=== PATIENT | male | born 1985 | race Caucasian/White ===

== ENCOUNTER 2025-06-06 10:05 | Outpatient (REF) | payer MEDICAID, SELFPAY ==
--- OUTSIDE RECORDS SUMMARY | 2025-06-05 14:45 | XMS_ITS | Encounter Summary ---
Author Organization [email or web address] Address [address] [place] [address] [address] [place] [address] Care Team Providers Care Tactical Air Defense Controller Name Role Phone Annita Delcid CNP Primary Care Provider [phone] Reason for Referral * Consultation (Routine) - Pending Review Specialty Diagnoses / Procedures Referred By Pema nix Referred To Contact Orthopaedic Surgery Diagnoses Closed fracture of left foot, sequela Annita Delcid CNP [address] [place] [address] Phone: tel: fax: Referral ID Status Reason Start Date Expiration Date Visits Requested Visits Authorized [id number] Pending Review Specialty Services Required 06/05/2026 1 1 Encounter Details Date Type Department Care Team (Latest Contact Info) Description 06/05/2025 2:45 PM EDT Office Visit [facility] P[facility]S [address] [place] [address] Annita Delcid CNP [address] [place] [address] Closed fracture of left foot, sequela (Primary Dx); Encounter for physical examination; Encounter for immunization; Elevated BP without diagnosis of hypertension; Allergic conjunctivitis of both eyes Social History Tobacco Use Types Packs/Day Years Used Date Smoking Tobacco: Never Passive Smoke Exposure: Never Smokeless Tobacco: Never Tobacco Cessation:Counseling Given: Not Answered Depression Answer Date Recorded Patient Health Questionnaire-9 Score 6 06/05/2025 Patient Health Questionnaire-9 Score 6 06/05/2025 Last PHQ-9: Questionnaire Data Not on file 1 Housing Stability Answer Date Recorded What is your housing situation today? I have efrain lazo 06/05/[address] you li ve. Do you have problems with any of the following? None of the above 06/05/2025 Food Insecurity Answer Date Recorded Within the past 12 months, y ou worried that your food would run out before you got money to buy more: Never True 06/05/2025 Within the past 12 months,th e food you bought just didn't last and you didn't have enough money to get more: Never True Transportation Answer Date Recorded In the past 12 months, has l ack of transportation kept you from medical appts, meetings, work or from getting things needed for daily living? No 06/05/2025 Utilities Answer Date Recorded In the past 12 months, has t he electric, gas, oil or water company threatened to shut off services in your home? No 06/05/2025 Depression Answer Date Recorded Patient Health Questionnaire-2 Score 3 06/05/2025 Internet Access Answer Date Recorded Internet Access Q1 Yes 06/05/2025 Internet Access Q2 Not on file 06/05/2025 Sex and Gender Information Value Date Recorded Sex Assigned at Male 06/20/2022 10:31 AM EDT Legal Sex Male 10:31 AM EDT Gender Identity Male 06/20/2022 10:31 AM EDT Sexual Orientation Don't know 06/20/2022 10 :31 AM EDT documented as of this encounter Last Filed Vital Signs Vital Sign Reading Time Taken Comments Blood Pressure 142/92 06/05/2025 2:32 PM EDT Pulse 82 06/05/2025 2:32 PM EDT Temperature 36.2 C (97.1 F) 06/05/2025 2:32 PM EDT Respiratory Rate 14 06/05/2025 2:32 PM EDT Oxygen Saturation 98% 06/05/2025 2:32 PM EDT Inhaled Oxygen Concentration - - Weight 89.8 kg (198 lb) 06/05/2025 2:32 PM EDT Height 159.4 cm (5' 2.75 ) 06/05/2025 2:32 PM ED T Body Mass Index 35.35 06/05/2025 2:32 PM EDT documented in this encounter Functional Status * Over the past 2 weeks, how often have you been bothered by any of the following problems? Question Answer Date of Assessment Author Patient Health Questionnaire -2 Score 3 06/05/2025 2:36 PM EDT Gricelda Tineo MA * Little interest or pleasure in doing things Answer Date of Assessment Author Nearly every day 06/05/2025 2:36 PM EDT Mikaela-Norma Muhammad MA * Feeling down, depressed, or hopeless Answer Date of Assessment Author Not at all 06/05/2025 2:36 PM EDT Mikaela-Co Norma wagoner MA * Trouble falling or staying asleep, or sleeping too much Answer Date of Assessment Author Not at all 06/05/2025 2:36 PM EDT Mikaela-Co Norma wagoner MA * Feeling tired or having little energy Answer Date of Assessment Author Nearly every day 06/05/2025 2:36 PM EDT Mikaela-Norma Muhammad MA * Poor appetite or overeating Answer Date of Assessment Author Not at all 06/05/2025 2:36 PM EDT Mikaela-Co Norma wagoner MA * Feeling bad about yourself - or that you are a failure or have let yourself or your family down Answer Date of Assessment Author Not at all 06/05/2025 2:36 PM EDT Mikaela-Co Norma wagoner MA * Trouble concentrating on things, such as reading the newspaper or watching television Answer Date of Assessment Author Not at all 06/05/2025 2:36 PM EDT Mikaela-Co Norma wagoner MA * Moving or speaking so slowly that other people could have noticed? Or the opposite - being so fidgety or restless that you have been moving around a lot more than usual. Answer Date of Assessment Author Not at all 06/05/2025 2:36 PM EDT Mikaela-Co Norma wagoner MA * Thoughts that you would be better off or hurting yourself in some way Answer Date of Assessment Author Not at all 06/05/2025 2:36 PM EDT Mikaela-Co Norma wagoner MA * Patient Health Questionnaire-9 Score Answer Date of Assessment Author 6 06/05/2025 2:36 PM EDT AlNorma Banda MA * How difficult have these problems made it for you to do your work, take care of things at home, or get along with other people? Answer Date of Assessment Author Not difficult at all 06/05/2025 2:36 PM EDT Norma Soler MA * Over the last 2 weeks, how often have you been bothered by any of the following problems? Question Answer Date of Assessment Author Feeling nervous, anxious, or on edge 0 06/05/2025 2:35 PM EDT Gricelda Tineo MA Not being able to stop or control worrying 0 06/05/2025 2:35 PM EDT Gricelda Tineo MA Worrying too much about different things 0 06/05/2025 2:35 PM EDT Gricelda Tineo MA Trouble relaxing 0 06/05/2025 2:35 PM EDT Norma Almanza MA Being so restless that it is hard to sit still 0 06/05/2025 2:35 PM EDT Gricelda Tineo MA Becoming easily annoyed or irritable 0 06/05/2025 2:35 PM EDT Gricelda Tineo MA Feeling afraid as if somethi ng awful might happen 0 06/05/2025 2:35 PM EDT Gricelda Tineo MA CINDY-7 Total Score 0 06/05/2025 2:35 PM EDT Norma Tineo MA documented as of this encounter Progress Notes * Annita Delcid CNP - 06/05/2025 2:45 PM EDT Subjective: Andre Paul is a 40 y.o. male who presents to the office for a new patient visit. Previous PCP unknown. Interim history: Pt was seen at [facility] ED after a fall for a foot injury and was diagnosed with L tarsal/metatarsal fractures. Pt had lisfranc injury repair. Has post op appointment with [facility] scheduled for 06/20. Imaging CT L Foot IMPRESSION: Fractures involving the medial medial and lateral cuneiform bones. Also visualizes of fractures involving the proximal second third and fourth metatarsals almost a Lisfranc fracture but without any dislocation. . A comminuted fracture involving the proximal fourth metacarpal with an large plantar displaced fragment is seen. There is moderate dorsal proximal midfoot soft tissue swelling. Current concerns: Needs to establish care to obtain referral for [facility]. Reports his foot feels much better but he is still unable to bear weight on that foot, also reports some mild pain and swelling on posterior aspect of foot. Pt reporting red itchy eyes in both eyes. Denies any crusting, or purulent discharge in eyes. Reports he notices certain environmental triggers such as perfume. Problem List[1] Surgical History[2] Family History[3] Social History Living situation: lives with sister Employment/Education:not working currently Diet/exercise: none Sexual activity: none reported Mental health: Patient Health Questionnaire-9 Score: 6 (06/05/2025 2:36 PM) Patient Health Questionnaire-2 Score: 3 (06/05/2025 2:36 PM) Thoughts that you would be better off or hurting yourself in some way: Not at all (06/05/2025 2:36 PM) Allergies[4] Review of Systems Vitals: 06/05/25 1432 BP: (!) 142/92 BP Location: Left arm Patient Position: Sitting BP Cuff Size: Large adult Pulse: 82 Resp: 14 Temp: 97.1 ??F (36.2 ??C) TempSrc: Oral SpO2: 98% Weight: 198 lb (89.8 kg) Height: 5' 2.75 (1.594 m) Physical Exam Vitals reviewed. Constitutional: General: He is not in acute distress. Appearance: Normal appearance. He is not ill-appearing, toxic-appearing or diaphoretic. HENT: Head: Normocephalic and atraumatic. Cardiovascular: Rate and Rhythm: Normal rate and regular rhythm. Pulses: Normal pulses. Dorsalis pedis pulses are 2+ on the right side and 2+ on the left side. Posterior tibial pulses are 2+ on the right side and 2+ on the left side. Heart sounds: Normal heart sounds. No murmur heard. No friction rub. No gallop. Pulmonary: Effort: Pulmonary effort is normal. No respiratory distress. Breath sounds: Normal breath sounds. No stridor. No wheezing, rhonchi or rales. Chest: Chest wall: No tenderness. Musculoskeletal: Right lower leg: No edema. Left lower leg: No edema. Feet: Right foot: Skin integrity: Skin integrity normal. Toenail Condition: Right toenails are normal. Left foot: Skin integrity: Skin integrity normal. Toenail Condition: Left toenails are normal. Comments: +incision is clean dry and intact, no redness, swelling, or signs of infection. Mild ecchymoses in arch of foot that appear to be resolving. Neurological: General: No focal deficit present. Mental Status: He is alert and oriented to person, place, and time. Mental status is at baseline. Psychiatric: Mood and Affect: Mood normal. Behavior: Behavior normal. Thought Content: Thought content normal. Judgment: Judgment normal. Assessment & Plan Closed fracture of left foot, sequela Foot appears to be healing routinely, no s/symptoms of infection, no open wound, incision site is clean dry and intact, DP/PT pulses intact bilaterally. Pt will f/u with [facility] post operatively. I refilled tylenol for pain relief, will send ibuprofen based on lab results Orders: Referral to Orthopaedic Surgery; Future Acetaminophen Extra Strength 500 MG tablet; Take 2 tablets (1,000 mg) by mouth if needed in the morning, at noon, and at bedtime (mild to moderatee pain). Encounter for physical examination 1. Anticipatory guidance discussed. Specific topics reviewed: drugs, ETOH, and tobacco, importance of regular dental care, importance of regular exercise, importance of varied diet, minimize junk food, and sex; STD and prevention as appropriate. 2. Age appropriate screenings discussed 3. Pt agreed to Tdap and flu vaccines today Routine Screening and Health Maintenance Optometry: No appointment requested Dental: Yes, last appointment 2 months ago ASCVD risk: 40 y.o. male family history of premature CAD obese sedentary lifestyle Lab Review: orders written for new lab studies as appropriate; see orders Routine Cancer Screening Colon CA: not yet indicated based on age Lung CA: PSA: not yet indicated based on age Orders: Lipid Panel, Standard; Future CBC auto differential; Future HIV-1/2 Antigen and Antibodies, Fourth Generation, with Reflexes; Future Hepatitis C Antibody with Reflex to HCV, RNA, Quantitative, Real-Time PCR; Future Basic Metabolic Panel; Future Encounter for immunization Orders: FLU VACCINE TRIVALENT [id number] (Fluarix) 19 yrs + TDAP VACCINE 7 yrs + Elevated BP without diagnosis of hypertension BP mildly elevated above goal >140/90, pt is in pain 2/2 to foot fracture. Advised weight loss Low sodium diet Increased hydration Allergic conjunctivitis of both eyes Orders: olopatadine (Patanol) 0.1 % ophthalmic solution; Administer 1 drop into affected eye(s) 2 times daily. Current Medications[5] Immunization History Administered Date(s) Administered Influenza, seasonal, injectable, preservative free 06/05/2025 Tdap 06/05/2025 Follow up in about 3 months (around 09/05/2025) for f/u foot fracture . [1] Patient Active Problem List Diagnosis Development delay Illiterate [2] Past Surgical History: Procedure Laterality Date APPENDECTOMY 10 years ago [3] Family History Problem Relation Name Age of Onset Other (HTN) Mother Other (HTN) Father [4] No Known Allergies [5] Current Outpatient Medications Medication Sig Dispense Refill aspirin 325 MG EC tablet Take 1 tablet by mouth Once per day. Acetaminophen Extra Strength 500 MG tablet Take 2 tablets (1,000 mg) by mouth if needed in the morning, at noon, and at bedtime (mild to moderatee pain). 60 tablet 0 ibuprofen 800 MG tablet Take 800 mg by mouth 4 times daily. No current facility-administered medications for this visit. documented in this encounter Miscellaneous Notes * Addendum Note - Annita Delcid CNP - 06/05/2025 2:45 PM EDTAddended by: ANNITA DELCID on: 06/05/2025 04:04 PM Modules accepted: Orders documented in this encounter Plan of Treatment Scheduled Orders Name Type Priority Associated Diagnoses Orde r Schedule Lipid Panel, Standard Lab Routine Encounter for physical examination Expected: 06/05/2025 (Approximate), Expires: 06/05/2026 CBC auto differential Lab Routine Encounter for physical examination Expected: 06/05/2025 (Approximate), Expires: 06/05/2026 HIV-1/2 Antigen and Antibodies, Fourth Generation, with Reflexes Lab Routine Encounter for physical examination Expected: 06/05/2025 (Approximate), Expires: 06/05/2026 Hepatitis C Antibody with Reflex to HCV, RNA, Quantitative, Real-Time PCR Lab Routine Encounter for physical examination Expected: 06/05/2025, Expires: 06/05/2026 Basic Metabolic Panel Lab Routine Encounter for physical examination Expected: 06/05/2025 (Approximate), Expires: 06/05/2026 Scheduled Referrals Name Type Priority Associated Diagnoses Order Schedule Referral to Orthopaedic Surgery Outpatient Referral Routine Closed fracture of left foot, sequela Expected: 06/05/2025 (Approximate), Expires: 06/05/2026 documented as of this encounter Visit Diagnoses Diagnosis Closed fracture of left foot, sequela- Primary Encounter for physical examination Encounter for immunization Elevated BP without diagnosis of hypertension Allergic conjunctivitis of both eyes Other chronic allergic conjunctivitis documented in this encounter Additional Health Concerns Assessment Noted Time PHQ-9 Depression Total Score: 6 06/05/20 25 2:36 PM EDT documented as of this encounter Care Teams Tactical Air Defense Controller Relationship Specialty Start Date End Date Annita Delcid CNP [address] [place] [id number] PCP - General Family Medicine 06/05/25 documented as of this encounter
--- OUTSIDE RECORDS SUMMARY | 2025-06-06 11:57 | XMS_ITS | Clinical Summary ---
Author Organization [employer] Address [address] [facility] [address] [place] [address] Care Team Providers Care Ignition Mechanic Name Role Phone Zaina Delcid CNP Primary Care Provider [phone] Allergies No known active allergies Medications aspirin 325 MG EC tablet Take 1 tablet by mouth Once per day. Active Acetaminophen Extra Strength 500 MG tabletIndications :Closed fracture of left foot, sequela Take 2 tablets (1,000 mg) by mouth if needed in the morning, at noon, and at bedtime (mild to moderatee pain). 60 tablet Active ibuprofen 800 MG tablet Take 800 mg by mouth 4 times daily. Active olopatadine (Patanol) 0.1 % ophthalmic solutionIndicatio ns:Allergic conjunctivitis of both eyes Administer 1 drop into affected eye(s) 2 times daily. 5 mL 2 025 2025 Active Acetaminophen Extra Strength 500 MG tablet TAKE 2 TABLETS BY MOUTH EVERY 8 HOURS,X15 DAYS 024 2024 Discontinued(R eorder (will not trigger notification to Pharmacy)) Active Problems Problem Noted Date Diagnosed Date Development delay 11/08/2016 Illiterate 11/08/2016 Encounters Date Type Department Care Team Description 06/05/2025 2:45 PM EDT Office Visit [facility] MED & PEDS [address] [place] [address] Zaina Delcid CNP Closed fracture of left foot, sequela (Primary Dx); Encounter for physical examination; Encounter for immunization; Elevated BP without diagnosis of hypertension; Allergic conjunctivitis of both eyes 06/05/2025 Telephone [facility] MED & PEDS [address] [place] [address] Mikaela-DericSisters, [place] chart prep 06/05/2025 Travel 06/05/2025 Telephone [facility] MEDICINE [address] [place] [address] Naresh Sanderson MD [facility] - New Patient Assistance from Last 3 Months Immunizations Immunization Administration Dates Next Due Influenza, seasonal, injectable, preservative fr ee 06/05/2025 Tdap 06/05/2025 Family History Medical History Relation Name Comments HTN Father HTN Mother Relation Name Status Comments Father Mother Social History Tobacco Use Types Packs/Day Years [...] Don't know 06/20/2022 10 :31 AM EDT Last Filed Vital Signs Vital Sign Reading [...] Mass Index 35.35 06/05/2025 2:32 PM EDT Plan of Treatment Health Maintenance Due Date Last Done Comments HIV Screening 1987 Lipid Panel 1987 Family Planning (PISQ) 2002 HPV Vaccines (1 - Male 3-dos e series) 2002 Hepatitis C Screening 2005 Hepatitis B Vaccines (1 of 3 - 19+ 3-dose series) 2006 COVID-19 Vaccine (1 - 2023-2 5 season) 2025 Alcohol/Substance Use Screening 06/05/2026 06/05/2025 Depression Screening 06/05/2026 06/05/2025, 06/05/2025 Disability Screening 06/05/2026 06/05/2025 SDOH Screening 06/05/2026 06/05/2025 Tobacco Screening 06/05/2026 06/05/2025 DTaP/Tdap/Td Vaccines (2 - T d or Tdap) 06/05/2035 06/05/2025 Zoster Vaccines (1 of 2) 2037 RSV Patients and Patients Aged 60 years or older (1 - 1-dose 75+ series) 2062 Influenza Vaccine Completed 06/05/2025 HIB Vaccines Aged Out No longer eligi ble based on patient's age to complete this topic Hepatitis A Vaccines Aged Out No long er eligible based on patient's age to complete this topic IPV Vaccines Aged Out No longer eligi ble based on patient's age to complete this topic Meningococcal B Vaccine Aged Out No l onger eligible based on patient's age to complete this topic Meningococcal Vaccine Aged Out No rizwana kaycee eligible based on patient's age to complete this topic Pneumococcal Vaccine: Pediatrics (0 to 5 Years) and At-Risk Patients (6 to 49) Years Aged Out No longer eligible b ased on patient's age to complete this topic RSV under 20 months Aged Out No longe r eligible based on patient's age to complete this topic Rotavirus Vaccines Aged Out No longer eligible based on patient's age to complete this topic Insurance C3 Care Teams Ignition Mechanic Relationship Specialty Start Date End Date Zaina Delcid CNP [address] [place] [address] PCP - General Family Medicine 06/05/25
--- OUTSIDE RECORDS SUMMARY | 2025-06-06 11:57 | XMS_ITS | Encounter Summary ---
Author Organization [employer] Address [address] [facility] [address] [place] [address] Care Team Providers Care Supervisor Assembly Stock Name Role Phone Zaina Delcid TESTING PROJECTS ADMINISTRATOR Primary Care Provider [phone] Encounter Details Date Type Department Care Team (Latest Contact Info) Description 06/05/2025 Travel Social History Tobacco Use Types Packs/Day Years Used Date Smoking Tobacco: Never Passive Smoke Exposure: Never Smokeless Tobacco: Never Depression Answer Date Recorded Patient Health Questionnaire-9 [...] AM EDT documented as of this encounter Functional Status * Over the [...] Not at all 06/05/2025 2:36 PM EDT Mikaela-Norma Kim MA * Trouble falling or staying asleep, or sleeping too much Answer Date of Assessment Author Not at all 06/05/2025 2:36 PM EDT Al-Co Norma wagoner MA * Feeling tired or [...] Not at all 06/05/2025 2:36 PM EDT Al-Co Norma wagoner MA * Trouble concentrating on things, such as reading the newspaper or watching television Answer Date of Assessment Author Not at all 06/05/2025 2:36 PM EDT Mikaela-Norma Kim MA * Moving or speaking so slowly [...] Not at all 06/05/2025 2:36 PM EDT Norma Reyna MA * Patient Health Questionnaire-9 Score Answer Date of Assessment Author 6 06/05/2025 2:36 PM EDT ChanaCo Norma wagoner MA * How difficult have these problems [...] Tineo MA documented as of this encounter Plan of Treatment Not on file documented as of this encounter Visit Diagnoses Not on filedocumented in this encounter Additional Health Concerns Assessment Noted Time PHQ-9 Depression Total Score: 6 06/05/20 25 2:36 PM EDT documented as of this encounter Care Teams Supervisor Assembly Stock Relationship Specialty Start Date End Date Zaina Delcid CNP [address] [place] [id number] PCP - General Family Medicine 06/05/25 documented as of this encounter
--- OUTSIDE RECORDS SUMMARY | 2025-06-06 11:57 | XMS_ITS | Encounter Summary ---
Author Organization [employer] Address [address] [facility] [address] [place] [address] Care Team Providers Care Water Project Manager Name Role Phone Zaina Delcid KOBI Primary Care Provider [phone] Reason for Visit * Reason Onset Date Comments chart prep 06/05/2025 Encounter Details Date Type Department Care Team (Late st Contact Info) Description 06/05/2025 Telephone [facility] MED & PEDS [address] [place] [address] RivkaRaymond, [place] chart prep Social History Tobacco Use Types Packs/Day Years [...] AM EDT documented as of this encounter Miscellaneous Notes * Telephone Encounter - Norma Tineo MA - 06/05/2025 2:11 PM EDT Chart Prep Labs: not applicable Images: not applicable Referrals: not applicable Vaccines due: HPV, HepB, DtaP, Tdap, Td, Flu, COVID Screenings: STI screening Overdue care gaps: SBIRT, SDOH, PHQ-9, CINDY-7, Oral health screening, Disability screen, and Tobacco documented in this encounter Plan of Treatment Not on file documented as of this encounter Visit Diagnoses Not on filedocumented in this encounter Additional Health Concerns Assessment Noted Time PHQ-9 Depression Total Score: 6 06/05/20 25 2:36 PM EDT documented as of this encounter Care Teams Water Project Manager Relationship Specialty Start Date End Date Zaina Delcid CNP [address] [place] [address] [place] [id number] PCP - General Family Medicine 06/05/25 documented as of this encounter
--- OUTSIDE RECORDS SUMMARY | 2025-06-06 11:57 | XMS_ITS | Encounter Summary ---
Author Organization [employer] Address [address] [facility] [address] [place] [address] Care Team Providers Care Manager Architectural Name Role Phone Zaina Delcid KOBI Primary Care Provider [phone] Reason for Visit * Reason Onset Date Comments [facility]W - New Patient Assistance 06/05/2025 Encounter Details Date Type Department Care Team ([facility] st Contact Info) Description 06/05/2025 Telephone [facility] [address] [place] [address] Naresh Sanderson MD [address] [place] [address] CHW - New Patient Assistance Social History Tobacco Use Types Packs/Day Years [...] Nearly every day 06/05/2025 2:36 PM EDT Norma Talamantes MA * Feeling down, depressed, or hopeless Answer Date of Assessment Author Not at all 06/05/2025 2:36 PM EDT Norma Reyna MA * Trouble falling or staying asleep, or sleeping too much Answer Date of Assessment Author Not at all 06/05/2025 2:36 PM EDT Norma Reyna MA * Feeling tired or having little energy Answer Date of Assessment Author Nearly every day 06/05/2025 2:36 PM EDT Norma Talamantes MA * Poor appetite or overeating Answer Date of Assessment Author Not at all 06/05/2025 2:36 PM EDT Norma Reyna MA * Feeling bad about yourself - or that you are a failure or have let yourself or your family down Answer Date of Assessment Author Not at all 06/05/2025 2:36 PM EDT Norma Reyna MA * Trouble concentrating on things, such as reading the newspaper or watching television Answer Date of Assessment Author Not at all 06/05/2025 2:36 PM EDT [employer] Norma wagoner MA * Moving or speaking so slowly that other people could have noticed? Or the opposite - being so fidgety or restless that you have been moving around a lot more than usual. Answer Date of Assessment Author Not at all 06/05/2025 2:36 PM EDT [employer] Norma wagoner MA * Thoughts that you would be better off or hurting yourself in some way Answer Date of Assessment Author Not at all 06/05/2025 2:36 PM EDT [employer] Norma wagoner MA * Patient Health Questionnaire-9 Score Answer Date of Assessment Author 6 06/05/2025 2:36 PM EDT [employer] Norma wagoner MA * How difficult have [...] Trouble relaxing 0 06/05/2025 2:35 PM EDT D Norma Cook MA Being so restless that it is [...] Tineo MA documented as of this encounter Miscellaneous Notes * Telephone Encounter - Maya Shafer - 06/05/2025 12:40 PM EDT Tc from pt requesting to reschedule missed new pt apt that was on 11/18 Contact pt at [phone] documented in this encounter Plan of Treatment Not on file documented as of this encounter Visit Diagnoses Not on filedocumented in this encounter Additional Health Concerns Assessment Noted Time PHQ-9 Depression Total Score: 6 06/05/20 2:36 PM EDT documented as of this encounter Care Teams Manager Architectural Relationship Specialty Start Date End Date Zaina Delcid CNP [address] [place] [address] PCP - General Family Medicine 06/05/25 documented as of this encounter
--- OUTSIDE RECORDS SUMMARY | 2025-06-06 11:58 | XMS_ITS | Clinical Summary ---
Author Organization [facility] Address [address] [place] [address] Phone Care Team Providers Care Optical Mechanic Apprentice Name Role Phone Physician, No Pcp Primary Care Provider Unavaila ble Allergies No known active allergies Medications oxyCODONE (OXY-IR) 5 mg immediate release capsule Take 1 capsule (5 mg total) by mouth every 6 (six) hours if needed for severe pain. Max Daily Amount: 20 mg 15 capsule 07/01/2024 Active Surgical History Surgery Date Site/Laterality Comments APPENDECTOMY 2009 PROCEDURE: HISTORICAL APPENDECTOMY Medical History Medical History Date Comments Illiterate DX:Illiterate Developmental delay DX:Developme ntal delay Family History Medical History Relation Name Comments Hypertension Father Relation Name Status Comments Father Social History Tobacco Use Types Packs/Day Years Used Date Smoking Tobacco: Never Alcohol Use Standard Drinks/Week Comments Yes 0 (1 standard drink = 0.6 oz pur e alcohol) Sex and Gender Information Value Date Recorded Sex Assigned at Not on file Legal Sex Male 1:00 PM EST Gender Identity Not on file Sexual Orientation Not on file Obstetrics History Last Filed Vital Signs Vital Sign Reading Time Taken Comments Blood Pressure 144/96 07/01/2024 6:31 AM EST Pulse 78 07/01/2024 6:31 AM EST Temperature 36.6 C (97.9 F) 07/01/2024 6:31 AM EST Respiratory Rate 14 07/01/2024 6:31 AM EST Oxygen Saturation 97% 07/01/2024 6:31 AM EST Inhaled Oxygen Concentration - - Weight 93 kg (205 lb) 07/01/2024 4:15 AM EST Height 160 cm (5' 3 ) 07/01/2024 4:15 AM EST Body Mass Index 36.31 07/01/2024 4:15 AM EST Plan of Treatment Health Maintenance Due Date Last Done Comments DTaP,Tdap,and Td Vaccines (1 - Tdap) 2006 Hepatitis B Vaccines (1 of 3 - 19+ 3-dose series) 2006 HPV Vaccines (1 - 3-dose SCD M series) 2014 Cholesterol Screening (Lipid Panel) 07/19/2022 HIV Screening 07/19/2022 Hepatitis C Screening 07/19/2022 Social Influencers of Health Screening 07/19/2022 Depression Screening 08/21/2024 COVID-19 Vaccine (1 - 2023-2 5 season) 2025 Influenza Vaccine (#1) 2025 RSV Immunization Adult Patie nts (1 - 1-dose 75+ series) 2062 HIB Vaccines Aged Out No longer eligi ble based on patient's age to complete this topic Hepatitis A Vaccines Aged Out No long er eligible based on patient's age to complete this topic IPV Vaccines Aged Out No longer eligi ble based on patient's age to complete this topic MMR Vaccines Aged Out No longer eligi ble based on patient's age to complete this topic Meningococcal ACWY Vaccine Aged Out N o longer eligible based on patient's age to complete this topic Meningococcal B Vaccine Aged Out No l onger eligible based on patient's age to complete this topic Pneumococcal Vaccine: Pediat rics (0 to 5 Years) and At-Risk Patients (6 to 49 Years) Aged Out No longer eligible b ased on patient's age to complete this topic RSV Immunization Patients Un markus 20 months Aged Out No longer eligible b ased on patient's age to complete this topic Varicella Vaccines Aged Out No longer eligible based on patient's age to complete this topic Insurance [place]ICA[place] - [place] Care Teams Optical Mechanic Apprentice Relationship Specialty Start Date End Date Physician, No Pcp PCP - General 07/01/24
[2025-06-06 14:41] LABS: MANUAL DIFF FLAG NO
[2025-06-06 14:48] LABS: Hematocrit 44.4 % (42.0-52.0); Hemoglobin 14.7 g/dl (14.0-18.0); Imm Gran Abs Auto 0.04 X10*3/uL (0.00-0.03); Imm Gran Pct Auto 0.5 % (0.0-0.4); Lymphocytes Absolute Auto 1.8 X10*3/uL (1.2-4.9); Mean Corpuscular HGB Conc 33.1 g/dl (31.0-36.0); Mean Corpuscular Hemoglobin 30.1 pg (27.0-33.0); Mean Corpuscular Volume 91.0 fL (80.0-98.0); NRBC Abs Auto 0.000 X10*3/uL (0.0-0.012); NRBC Pct Auto 0.0 /100WBC (0.0-0.2); Platelet Count 257 X10*3/uL (160-400); Red Blood Count 4.88 X10*6/uL (4.60-5.80); White Blood Count 8.0 X10*3/uL (4.8-10.8)
[2025-06-06 16:12] LABS: Anion Gap 13 (12-20); Blood Urea Nitrogen 10 mg/dL (9-16); Calcium 8.8 mg/dL (8.4-10.2); Carbon Dioxide 26 mmol/L (22-29); Chloride 105 mmol/L (96-108); Cholesterol 138 mg/dL (<200); Estimated Glomerular Filt Rate > 60; HDL Cholesterol 47 mg/dL (>40); Potassium 4.0 mmol/L (3.3-5.1); Sodium 140 mmol/L (135-145); Triglycerides 62 mg/dL (<150)
[2025-06-07 10:41] LABS: HIV Num 1 0.06 S/CO (0.00-0.99); ~HepC Num1 0.11 S/CO (0.00-0.79); ~Hepatitis C Antibody Nonreactive (Nonreactive)
== END 2025-06-06 10:06 | disposition home or self-care (01) ==
LOC: HO.CHCLDS 10:05
DX: Z00.00 Encounter for general adult medical examination without abnormal findings (principal); Z11.4 Encounter for screening for human immunodeficiency virus [HIV]
CPT/HCPCS: 36415; 80048; 80061; 85025; 86803; 87389